=== PATIENT | male | born 1985 | race Caucasian/White ===

== ENCOUNTER 2017-02-26 14:14 | Emergency (ER) | payer OTHER ==
[~2017-02-26] VITALS: Ht 165.1 cm; Wt 68.0 kg
[2017-02-26 15:10] VITALS: BP 116/78
--- NOTE | 2017-02-26 16:22 | NUR ---
PATIENT TO BED 7,
--- NOTE | 2017-02-26 16:23 | NUR ---
32/M BIB SELF c/o dizziness and nausea fatigue x 2 days----parietal headaches 01/04 AT THIS TIME , polyuria, polydipsia. denies injury, ambulatory with steady gait. hx---urine incontinence. bs 98 at this time.
[2017-02-26 16:45] LABS: APPEARANCE,URINE CLEAR (CLEAR); BILIRUBIN,URINE NEGATIVE (NEGATIVE); BLOOD, URINE NEGATIVE (NEGATIVE); COLOR,URINE YELLOW (YELLOW); LEUKOCYTE ESTERASE ,URINE NEGATIVE (NEGATIVE); NITRITE, URINE NEGATIVE (NEGATIVE); UGLUCOSE NEGATIVE (NEGATIVE)
[2017-02-26 16:45] LABS: BASOPHILS # (AUTO) 0.4 K/uL (0.00-0.22); EOSINOPHILS # (AUTO) 0.2 K/uL (0-0.4); HEMATOCRIT 47.2 % (36-52); HEMOGLOBIN 15.5 g/dL (12.0-18.0); LYMPHOCYTES # (AUTO) 1.5 K/uL (2.0-11.5); MEAN CORPUSCULAR HEMOGLOBIN 29 pg (27-31); MEAN CORPUSCULAR HGB CONC 33 g/dL (33-37); MEAN CORPUSCULAR VOLUME 90 fL (80-94); MONOCYTES # (AUTO) 0.9 K/uL (0.8-1.0); NEUTROPHILS # (AUTO) 7.9 K/uL (1.8-7.7); PLATELET COUNT (AUTO) 215 K/uL (140-450); RED BLOOD CELL COUNT(AUTO) 5.28 MIL/uL (4.20-6.10); RED CELL DISTRIBUTION WIDTH 12.1 % (11.6-13.7); WHITE BLOOD COUNT (AUTO) 10.9 K/uL (4.8-10.8)
--- NOTE | 2017-02-26 16:47 | NUR ---
Patient being evaluated by DR ELIAS at bedside.
[2017-02-26 17:02] LABS: ANION GAP 10.4 (8-16); CARBON DIOXIDE 30.6 mmol/L (21-32); CREATININE 0.9 mg/dL (0.7-1.3); TOTAL BILIRUBIN 0.6 mg/dL (0.0-1.0)
[2017-02-26 18:30] LABS: THYROID STIMULATING HORMONE 3.86 uIU/mL (0.34-3.74)
[2017-02-26 19:04] VITALS: BP 115/72
--- NOTE | 2017-02-26 19:04 | NUR ---
Patient discharged with v/s stable. Written and verbal after care instructions given and explained. Patient verbalized understanding. Ambulatory with steady gait. All questions addressed prior to discharge. Advised to follow up with PMD.
== END 2017-02-26 19:09 | disposition home or self-care (01) ==
LOC: MED 14:14
DX: R53.1 Weakness (principal); R10.13 Epigastric pain; R53.83 Other fatigue; R51 Headache; R42 Dizziness and giddiness; R11.2 Nausea with vomiting, unspecified; Z88.1 Allergy status to other antibiotic agents
CPT/HCPCS: 36415; 80053; 81003; 82550; 82948; 83690; 84443; 84484; 85025; 93005; 99285